=== PATIENT | male | born 1970 | race Asian ===

== ENCOUNTER 2021-12-04 09:43 | Emergency (ER) | payer OTHER ==
[~2021-12-04] VITALS: Ht 163.8 cm; Wt 76.0 kg
[2021-12-04 09:46] VITALS: BP 125/78
[2021-12-04] MEDS ORDERED: DICYCLOMINE HCL LIQUID 10 MG/5 ML UDC ONE (10:33)
[2021-12-04] MEDS ORDERED: ALUMINUM HYD/MAG/SIMETHICONE 30 ML UDC ONE (10:33)
[2021-12-04] MEDS: NACL 0.9% 1,000 ML IV SCH (10:40)
[2021-12-04] MEDS: ONDANSETRON 4 MG/2 ML VIAL IVP ONE (10:40)
[2021-12-04] MEDS: KETOROLAC 30 MG/ML VIAL IVP ONE (10:41)
[2021-12-04] MEDS: ALUMINUM HYD/MAG/SIMETHICONE 30 ML, DICYCLOMINE HCL LIQUID 20 MG, LIDOCAINE VISCOUS 2% ... PO ONE ×3 (10:41)
[2021-12-04 11:02] LABS: BASOPHILS % (AUTO) 0.1 % (0.0-2.0); EOSINOPHILS % (AUTO) 0.4 % (0.0-4.0); HEMATOCRIT 43.2 % (36-52); HEMOGLOBIN 14.5 g/dL (12.0-18.0); LYMPHOCYTES # (AUTO) 0.6 K/uL (2.0-11.5); LYMPHOCYTES % (AUTO) 7.4 % (20.5-51.1); MEAN CORPUSCULAR HEMOGLOBIN 30 pg (27-31); MEAN CORPUSCULAR HGB CONC 34 g/dL (33-37); MEAN CORPUSCULAR VOLUME 88.3 fL (80-94); MONOCYTES # (AUTO) 0.6 K/uL (0.8-1.0); MONOCYTES % (AUTO) 7.1 % (1.7-9.3); NEUTROPHILS # (AUTO) 6.9 K/uL (1.8-7.7); PLATELET COUNT (AUTO) 140 K/uL (140-450); RED BLOOD CELL COUNT(AUTO) 4.89 MIL/uL (4.20-6.10); WHITE BLOOD COUNT (AUTO) 8.1 K/uL (4.8-10.8)
[2021-12-04 11:18] LABS: ALBUMIN 3.8 g/dL (3.4-5.0); ANION GAP 8.4 (8-16); CARBON DIOXIDE 27.9 mmol/L (21-32); CREATININE 0.8 mg/dL (0.6-1.3); POTASSIUM 3.3 mmol/L (3.5-5.1)
[2021-12-04 13:29] LABS: BILIRUBIN,URINE NEGATIVE (NEGATIVE); BLOOD, URINE 3+ (NEGATIVE); COLOR,URINE DARK YELLOW (YELLOW); LEUKOCYTE ESTERASE ,URINE NEGATIVE (NEGATIVE); NITRITE, URINE NEGATIVE (NEGATIVE); UGLUCOSE NEGATIVE (NEGATIVE)
[2021-12-04 13:49] LABS: APPEARANCE,URINE CLEAR (CLEAR)
[2021-12-04 14:04] LABS: RBC,URINE 50-80 /HPF (0-5); WBC,URINE 0-5 /HPF (0-5)
[2021-12-04] MEDS ORDERED: ACET-9525 PO (14:12)
[2021-12-04] MEDS ORDERED: TAMS0.4C96 PO (14:12)
[2021-12-04 15:00] VITALS: BP 111/80
== END 2021-12-04 15:00 | disposition home or self-care (01) ==
LOC: MED 09:43
DX: N20.0 Calculus of kidney (principal); R11.2 Nausea with vomiting, unspecified; M54.50 Low back pain, unspecified
CPT/HCPCS: 36415; 74176; 80053; 81001; 83690; 85025; 96361; 96374; 96375; 99284; J1885; J2405; J7030

== ENCOUNTER 2023-04-21 07:07 | Emergency (ER) | payer OTHER ==
[~2023-04-21] VITALS: Ht 167.6 cm; Wt 78.9 kg
[~2023-04-21 07:07] MED LIST: ACET-9525 PO; TAMS0.4C96 PO
[2023-04-21 07:18] VITALS: BP 149/94; PULSE 68; RESP 18; TEMP 97.6; O2SAT 97
[2023-04-21] MEDS ORDERED: KETOROLAC 30 MG/ML VIAL IVP ONE (07:30)
[2023-04-21] MEDS ORDERED: NACL 0.9% 1,000 ML IV ONE (07:30)
[2023-04-21] MEDS ORDERED: ONDANSETRON 4 MG/2 ML VIAL IVP ONE (07:30)
[2023-04-21 08:30] LABS: BASOPHILS % (AUTO) 0.4 % (0.0-2.0); EOSINOPHILS % (AUTO) 0.7 % (0.0-4.0); HEMATOCRIT 46.9 % (36-52); HEMOGLOBIN 15.8 g/dL (12.0-18.0); LYMPHOCYTES # (AUTO) 0.8 K/uL (2.0-11.5); LYMPHOCYTES % (AUTO) 11.3 % (20.5-51.1); MEAN CORPUSCULAR HEMOGLOBIN 30 pg (27-31); MEAN CORPUSCULAR HGB CONC 34 g/dL (33-37); MEAN CORPUSCULAR VOLUME 89.7 fL (80-94); MONOCYTES # (AUTO) 0.3 K/uL (0.8-1.0); MONOCYTES % (AUTO) 4.9 % (1.7-9.3); NEUTROPHILS # (AUTO) 5.7 K/uL (1.8-7.7); NEUTROPHILS % (AUTO) 82.7 % (42.2-75.2); PLATELET COUNT (AUTO) 142 K/uL (140-450); RED BLOOD CELL COUNT(AUTO) 5.22 MIL/uL (4.20-6.10); WHITE BLOOD COUNT (AUTO) 6.9 K/uL (4.8-10.8)
[2023-04-21 08:33] LABS: APPEARANCE,URINE CLEAR (CLEAR); BILIRUBIN,URINE NEGATIVE (NEGATIVE); BLOOD, URINE NEGATIVE (NEGATIVE); COLOR,URINE YELLOW (YELLOW); LEUKOCYTE ESTERASE ,URINE NEGATIVE (NEGATIVE); NITRITE, URINE NEGATIVE (NEGATIVE); PROTEIN,URINE NEGATIVE (NEGATIVE); UGLUCOSE TRACE (NEGATIVE); UROBILINOGEN,URINE 0.2 EU/dL (0.2 - 1)
[2023-04-21 08:38] LABS: ALANINE AMINOTRANSFERASE 35 U/L (12-78); ALBUMIN 4.3 g/dL (3.4-5.0); ALKALINE PHOSPHATASE 89 U/L (50-136); ANION GAP 11.8 (8-16); ASPARTATE AMINOTRANSFERASE 24 U/L (15-37); CALCIUM 8.7 mg/dL (8.5-10.1); CARBON DIOXIDE 28.1 mmol/L (21-32); CHLORIDE 102 mmol/L (98-107); CREATININE 1.3 mg/dL (0.6-1.3); GFR ARICAN-AMERICAN 75 mL/min (>90); GFR NON ARICAN-AMERICAN 62 mL/min (>90); GLUCOSE 154 mg/dL (74-106); LIPASE 53 U/L (16-77); POTASSIUM 3.9 mmol/L (3.5-5.1); SODIUM SERUM 138 mmol/L (136-145); TOTAL BILIRUBIN 0.7 mg/dL (0.0-1.0); TOTAL PROTEIN, SERUM 7.7 g/dL (6.4-8.2); UREA NITROGEN, BLOOD 15 mg/dL (7-18)
[2023-04-21] MEDS ORDERED: MORPHINE SULFATE 4 MG/ML SYR IVP ONE (08:50)
[2023-04-21] MEDS ORDERED: IBUP-2213 PO (10:25)
[2023-04-21] MEDS ORDERED: ACET-5629 PO (10:25)
[2023-04-21] MEDS ORDERED: TAMS0.4C96 PO (10:25)
[2023-04-21 10:44] VITALS: BP 129/94; PULSE 82; RESP 15; TEMP 97.6; O2SAT 97
== END 2023-04-21 10:46 | disposition home or self-care (01) ==
LOC: MED 07:07
DX: N13.2 Hydronephrosis with renal and ureteral calculous obstruction (principal); R11.2 Nausea with vomiting, unspecified; E11.9 Type 2 diabetes mellitus without complications; I10 Essential (primary) hypertension; E78.5 Hyperlipidemia, unspecified; Z79.899 Other long term (current) drug therapy; Z79.1 Long term (current) use of non-steroidal anti-inflammatories (NSAID)
CPT/HCPCS: 36415; 74176; 80053; 81003; 83690; 84484; 85025; 93005; 96361; 96374; 96375; 99285; J1885; J2270; J2405; J7030

== ENCOUNTER 2023-04-24 07:42 | Emergency (ER) | payer OTHER ==
[~2023-04-24] VITALS: Ht 167.6 cm; Wt 77.1 kg
[~2023-04-24 07:42] MED LIST changes: +ACET-5629 PO; +IBUP-2213 PO
[2023-04-24 08:06] VITALS: BP 138/76; PULSE 89; RESP 18; TEMP 97; O2SAT 98
[2023-04-24] MEDS ORDERED: KETOROLAC 30 MG/ML VIAL IM ONE (08:25)
[2023-04-24 08:41] VITALS: O2SAT 98
[2023-04-24] MEDS ORDERED: MIRABULK PO ×2 (09:19→09:39)
[2023-04-24] MEDS ORDERED: IBUP-2213 PO ×2 (09:23→09:39)
[2023-04-24 09:36] VITALS: BP 126/70; PULSE 72; RESP 18; O2SAT 99
== END 2023-04-24 09:36 | disposition home or self-care (01) ==
LOC: MED 07:42
DX: N23 Unspecified renal colic (principal); K59.00 Constipation, unspecified; I10 Essential (primary) hypertension; E11.9 Type 2 diabetes mellitus without complications; E78.5 Hyperlipidemia, unspecified; Z79.899 Other long term (current) drug therapy; Z79.4 Long term (current) use of insulin
CPT/HCPCS: 74018; 96372; 99283; J1885